=== PATIENT | female | born 1960 | race Caucasian/White ===

== ENCOUNTER 2022-09-28 11:45 | Emergency (ER) | payer OTHER ==
[~2022-09-28] VITALS: Ht 157.5 cm; Wt 80.0 kg
[2022-09-29] MEDS ORDERED: DexAMETHasone SOD PHOS 10MG/1ML VIAL INJ IM ONE (03:30)
[2022-09-29] MEDS ORDERED: PERCOT PO (04:13)
[2022-09-29] MEDS ORDERED: PRED20TA2 PO (04:13)
[2022-09-29 04:20] VITALS: BP 152/76
== END 2022-09-29 04:26 | disposition home or self-care (01) ==
LOC: EDBD 11:45 → ER 11:45
DX: M72.2 Plantar fascial fibromatosis (principal); I10 Essential (primary) hypertension
CPT/HCPCS: 73610; 73630; 96372; 99284; J1100